=== PATIENT | male | born 1950 | race Caucasian/White ===

== ENCOUNTER → 2018-11-30 | Outpatient (CLI) | payer OTHER ==
[~2018-11-30] MED LIST: ESCITALOPRAM OX10 MG PO; HYDROCHLOROTHIA25 M2 PO; LIPITOR10 MG PO
== END ==
LOC: CAT 08:34
DX: Z13.6 Encounter for screening for cardiovascular disorders (principal); E78.00 Pure hypercholesterolemia, unspecified; Z82.49 Family history of ischemic heart disease and other diseases of the circulatory system